=== PATIENT | female | born 1985 | race Caucasian/White ===

== ENCOUNTER 2017-07-14 09:44 | Emergency (ER) | payer OTHER ==
[~2017-07-14] VITALS: Ht 171.5 cm; Wt 70.2 kg
[2017-07-14 09:54] VITALS: TEMP 36.9; Ht 171.5 cm; Wt 70.2 kg
[2017-07-14] MEDS ORDERED: SODIUM CHLORIDE 0.9% 1000ML 1,000 ML IV STA (10:16)
[2017-07-14 10:38] LABS: BASO % 0.2 %; BASO ABS # 0.02 K/uL (0-0.2); EOS % 0.7 %; EOS ABS # 0.07 K/uL (0-0.5); HEMATOCRIT 37.7 % (37-47); HEMOGLOBIN 12.5 g/dL (12.0-16.0); IG# 0.04 K/uL (0.00-0.02); LYMPH % 6.2 %; LYMPH ABS # 0.61 K/uL (1.2-3.4); MEAN CELL VOLUME 83.8 fL (80-100); MEAN CORPUSCULAR HEMOGLOBIN 27.8 pg (25-34); MEAN CORPUSCULAR HGB CONC 33.2 g/dl (32-36); MEAN PLATELET VOLUME 10.5 fL (7.4-10.4); MONO % 8.2 %; NEUT % 84.3 %; NEUT ABS # 8.25 K/uL (1.4-6.5); PLATELET COUNT 212 K/uL (130-400); RED CELL DISTRIBUTION WIDTH CV 14.3 % (11.5-14.5); RED CELL DISTRIBUTION WIDTH SD 44.1 fL (36.4-46.3); WHITE BLOOD COUNT 9.79 K/uL (4.8-10.8)
--- NOTE | 2017-07-14 10:39 | EMERGENCY ROOM VISIT NOTE ---
History Report prepared by Apolinar: Sarwat Reece Under the Supervision of: Dr. Tameka Bay M.D. First contact with patient: 10:05 Chief Complaint: SYNCOPE (NEAR SYNCOPE) Stated Complaint: PAIN BEHIND BELLY BUTTON, VOMITING, PASSING OUT Nursing Triage Summary: Patient states "For the past couple years, I've been having lots of pain with my period. My period started yesterday and the pain started. Today, the pain has been worse. I started having chills, nausea and feeling like I was going to pass out." History of Present Illness The patient is a 32 year old female who presents to the Emergency Room with complaints of persistent periumbilical abdominal pain that began yesterday. The patient states that she started her period yesterday. "Heavy bleeding" and significant abdominal cramping are common for her with her menstrual cycles. However, the pain she woke up with this morning was different in the quality and intensity of the symptoms. She described her pain as a "super intense" "tearing and pulling" sensation around her belly button. This pain is worsened with movement. Today she also began to experience waves of nausea and chills. She also described a "hot and tingling" sensation over her head and face. She believed that these were pre-syncopal symptoms, but never actually lost consciousness. The patient does have a history of ovarian cysts. Source of History: patient Onset: Yesterday Symptom Intensity: severe (Super severe) Quality: other ("tearing/pulling") Timing: other (Persistent) Modifying Factors (Worsening): movement Associated Symptoms: + chills, + nausea, + numbness ("hot and tingling" over her head and face) Review of Systems See HPI for pertinent positives & negatives. A total of 10 systems reviewed and were otherwise negative. Past Medical & Surgical Hx of ovarian cyst Family History Cancer Hypertension Social History Smoking Status: Never Smoker Drug Use: none Marital Status: Housing Status: lives with family Current/Historical Medications No Active Prescriptions or Reported Meds Allergies Coded Allergies: No Known Allergies (Unverified , 07/14/17) Physical Exam Vital Signs Date Time Temp Pulse Resp B/P (MAP) Pulse Ox O2 Delivery O2 Flow Rate FiO2 07/14/17 13:45 100 18 117/62 98 07/14/17 13:04 91 16 119/65 98 Room Air 07/14/17 11:38 97 20 127/93 97 Room Air 07/14/17 10:53 94 07/14/17 10:48 96 16 124/75 100 Room Air 102 125/75 107 121/78 07/14/17 10:14 84 18 128/90 100 Room Air 07/14/17 09:54 36.9 97 18 117/65 100 Room Air Physical Exam Vital signs reviewed. General: Well-appearing young female, in no significant distress. HEENT: No scleral icterus, PERRLA, neck supple. Atraumatic. Cardiovascular: Regular rate and rhythm, no extra sounds. Pulmonary: Clear to auscultation bilaterally, normal work of breathing. Abdomen: Soft, nontender, nondistended, positive bowel sounds. Musculoskeletal: Atraumatic, no peripheral edema. Neurologic: Patient awake alert and oriented x 3 Skin: Warm, dry, no rash Medical Decision & Procedures ER Provider Diagnostic Interpretation: Radiology results as stated below per my review and radiologist interpretation: PELVIC ULTRASOUND, TRANSABDOMINAL AND TRANSVAGINAL HISTORY: menstrual pain, near syncope COMPARISON: None. FINDINGS: Uterus: 7.4 x 5.3 x 3.8 cm. Endometrial stripe: 9 mm in thickness. Right ovary: Heterogeneous ovarian parenchyma with the ovary measuring 5.4 x 3.3 x 4.6 cm. There are few small follicle/cysts. Normal color flow within the ovary. Left ovary: Heterogeneous ovarian parenchyma with the ovary measuring 4.2 x 2.8 x 2.4 cm. There are few small follicle/cysts. Normal color flow within the ovary. Miscellaneous:Trace pelvic free fluid. IMPRESSION: 1. Normal uterus. 2. Trace pelvic free fluid. 3. Heterogeneous parenchyma of the bilateral ovaries which contain a few small follicles/cysts. Given the symmetry this is likely within the range of normal limits. Electronically signed by: Taras Sheridan M.D. 07/14/2017 1:03 PM Dictated Date/Time: 07/14/2017 12:58 PM Laboratory Results 07/14/17 10:29 Red Blood Count 4.50, Mean Corpuscular Volume 83.8, Mean Corpuscular Hemoglobin 27.8, Mean Corpuscular Hemoglobin Concent 33.2, Mean Platelet Volume 10.5, Neutrophils (%) (Auto) 84.3, Lymphocytes (%) (Auto) 6.2, Monocytes (%) (Auto) 8.2, Eosinophils (%) (Auto) 0.7, Basophils (%) (Auto) 0.2, Neutrophils # (Auto) 8.25, Lymphocytes # (Auto) 0.61, Monocytes # (Auto) 0.80, Eosinophils # (Auto) 0.07, Basophils # (Auto) 0.02 07/14/17 10:29 Test 07/14/17 10:29 07/14/17 11:30 White Blood Count 9.79 K/uL (4.8-10.8) Red Blood Count 4.50 M/uL (4.2-5.4) Hemoglobin 12.5 g/dL (12.0-16.0) Hematocrit 37.7 % (37-47) Mean Corpuscular Volume 83.8 fL (80-100) Mean Corpuscular Hemoglobin 27.8 pg (25-34) Mean Corpuscular Hemoglobin Concent 33.2 g/dl (32-36) Platelet Count 212 K/uL (130-400) Mean Platelet Volume 10.5 fL (7.4-10.4) Neutrophils (%) (Auto) 84.3 % Lymphocytes (%) (Auto) 6.2 % Monocytes (%) (Auto) 8.2 % Eosinophils (%) (Auto) 0.7 % Basophils (%) (Auto) 0.2 % Neutrophils # (Auto) 8.25 K/uL (1.4-6.5) Lymphocytes # (Auto) 0.61 K/uL (1.2-3.4) Monocytes # (Auto) 0.80 K/uL (0.11-0.59) Eosinophils # (Auto) 0.07 K/uL (0-0.5) Basophils # (Auto) 0.02 K/uL (0-0.2) RDW Standard Deviation 44.1 fL (36.4-46.3) RDW Coefficient of Variation 14.3 % (11.5-14.5) Immature Granulocyte % (Auto) 0.4 % Immature Granulocyte # (Auto) 0.04 K/uL (0.00-0.02) Anion Gap 4.0 mmol/L (3-11) Est Creatinine Clear Calc Drug Dose 97.0 ml/min Estimated GFR () 109.8 Estimated GFR (Non- 94.8 BUN/Creatinine Ratio 15.6 (10-20) Calcium Level 8.5 mg/dl (8.5-10.1) Total Bilirubin 0.7 mg/dl (0.2-1) Direct Bilirubin 0.2 mg/dl (0-0.2) Aspartate Amino Transf (AST/SGOT) 12 U/L (15-37) Alanine Aminotransferase (ALT/SGPT) 18 U/L (12-78) Alkaline Phosphatase 58 U/L (45-117) Total Protein 7.4 gm/dl (6.4-8.2) Albumin 4.1 gm/dl (3.4-5.0) Thyroid Stimulating Hormone (TSH) 1.460 uIu/ml (0.300-4.500) Urine Color RED Urine Appearance SL CLOUDY (CLEAR) Urine pH 8.0 (4.5-7.5) Urine Specific [place] 1.010 (1.000-1.030) Urine Protein NEG (NEG) Urine Glucose (UA) NEG (NEG) Urine Ketones NEG (NEG) Urine Occult Blood 3+ (NEG) Urine Nitrite NEG (NEG) Urine Bilirubin NEG (NEG) Urine Urobilinogen NEG (NEG) Urine Leukocyte Esterase TRACE (NEG) Urine RBC >30 /hpf (0-4) Urine WBC >30 /hpf (0-5) Urine Epithelial Cells 0-5 /lpf (0-5) Urine Bacteria 1+ (NEG) Urine Test NEG (NEG) Laboratory results per my review. Medications Administered Medications (Trade) Dose Ordered Sig/Sarita Route Start Time Stop Time Status Last Admin Dose Admin Sodium Chloride 1,000 ml @ 999 mls/hr Q1H1M STAT IV 07/14/17 10:16 07/14/17 11:16 DC 07/14/17 10:16 999 MLS/HR ECG Per My Interpretation Indication: syncope (near) Rate (beats per minute): 94 Rhythm: normal sinus Findings: other (No PVCs, no JAYNA/STD) ED Course 1014: Past medical records reviewed. The patient was evaluated in room B9. A complete history and physical examination was performed. 1016: Ordered Sodium Chloride 1000 mL @ 999 mL/hr IV. 1349: Upon reevaluation, the patient appeared to have improvement of her symptoms. I discussed findings with her. She verbalized agreement of the treatment plan. The patient was discharged home. Medical Decision Differential diagnosis: Etiologies such as appendicitis, diverticulitis, PUD, biliary pathology, UTI, pancreatitis, obstruction, mesenteric ischemia, aortic pathology, infections, inflammatory bowel disease, renal colic, as well as others were entertained. This patient was evaluated and appeared to be in no significant distress. IV access was obtained and laboratory work was drawn. Patient was hydrated with normal saline solution. Laboratory work is fairly unrevealing. EKG reveals no evidence of acute ischemia/dysrhythmia. Ultrasound of the pelvis was performed and is fairly normal, there is a small amount of free fluid. The patient's severe pain may have been related to she was advised to follow-up with her OB/ COMPENSATION ANALYST as soon as possible. She is feeling much improved after the IV hydration and did not require any pain medication in the emergency department. Patient was discharged in care of her and will return to the ED for worsening of symptoms or any medical concerns. Medication Reconcilliation Current Medication List: was personally reviewed by me Blood Pressure Screening Patient's blood pressure: Normal blood pressure Impression Primary Impression: Dysmenorrhea Additional Impression: Near syncope Scribe Attestation The scribe's documentation has been prepared under my direction and personally reviewed by me in its entirety. I confirm that the note above accurately reflects all work, treatment, procedures, and medical decision making performed by me. Departure Information Dispostion Home / Self-Care Prescriptions No Active Prescriptions or Reported Meds Forms HOME CARE DOCUMENTATION FORM, IMPORTANT VISIT INFORMATION Patient Instructions My [facility] [address] Additional Instructions Diagnosis: Dysmenorrhea, near-syncope Ibuprofen 600 mg every 6 hours as needed for pain with food. Drink plenty of clear fluids. Contact SENIOR PHYSICIAN for follow-up as soon as possible. Follow-up with your primary care physician if the symptoms recur. Return to the emergency department for worsening of symptoms or any medical concerns. Problem Qualifiers
[2017-07-14 11:05] LABS: ALBUMIN 4.1 gm/dl (3.4-5.0); CALCIUM 8.5 mg/dl (8.5-10.1); CREATININE 0.81 mg/dl (0.60-1.20); POTASSIUM 3.5 mmol/L (3.5-5.1); TOTAL PROTEIN 7.4 gm/dl (6.4-8.2)
--- NOTE | 2017-07-14 13:04 | DIAGNOSTIC IMAGING REPORT ---
PELVIC ULTRASOUND, TRANSABDOMINAL AND TRANSVAGINAL HISTORY: menstrual pain, near syncope COMPARISON: None. FINDINGS: Uterus: 7.4 x 5.3 x 3.8 cm. Endometrial stripe: 9 mm in thickness. Right ovary: Heterogeneous ovarian parenchyma with the ovary measuring 5.4 x 3.3 x 4.6 cm. There are few small follicle/cysts. Normal color flow within the ovary. Left ovary: Heterogeneous ovarian parenchyma with the ovary measuring 4.2 x 2.8 x 2.4 cm. There are few small follicle/cysts. Normal color flow within the ovary. Miscellaneous:Trace pelvic free fluid. IMPRESSION: 1. Normal uterus. 2. Trace pelvic free fluid. 3. Heterogeneous parenchyma of the bilateral ovaries which contain a few small follicles/cysts. Given the symmetry this is likely within the range of normal limits. Electronically signed by: Taras Sheridan M.D. 07/14/2017 1:03 PM Dictated Date/Time: 07/14/2017 12:58 PM
[2017-07-14 13:45] VITALS: BP 117/62; PULSE 100; O2SAT 98
== END 2017-07-14 14:00 | disposition home or self-care (01) ==
LOC: C.EDB 09:47
DX: N94.6 Dysmenorrhea, unspecified (principal); R55 Syncope and collapse; Z87.42 Personal history of other diseases of the female genital tract

== ENCOUNTER → 2017-10-11 | Outpatient (CLI) | payer OTHER ==
[~2017-10-11] MED LIST: GADAVIST IV PRN; PRLSR20 PO; RANI150T3 PO; RIBO50TA5; SUMA50TA15 PO
--- NOTE | 2017-10-11 14:10 | DIAGNOSTIC IMAGING REPORT ---
BRAIN COMBO CLINICAL HISTORY: 32 years-old Female presenting with CHRONIC MIGRAINE, history of migraines for 3 years, dizziness and nausea with migraines. TECHNIQUE: Multisequence, multiplanar MR imaging of the brain was performed before and after the administration of intravenous contrast. IV contrast: 6.5 mL of Gadavist. COMPARISON: None. FINDINGS: Localizer images: Unremarkable. Ventricles and sulci normal in size. Several foci (7) of T2/FLAIR hyperintensity in the subcortical white matter, which are unexpected for chronic small vessel ischemic change given the patient's age. These do not enhance or demonstrate restricted diffusion. No mass effect or midline shift. No restricted diffusion to suggest acute ischemia. No hemorrhage. No extra-axial fluid collection. T2 skull base flow voids preserved. No abnormal parenchymal enhancement. Bone marrow signal intensity within the calvarium within normal limits. IMPRESSION: 1. Multiple foci of abnormal white matter signal intensity, which could be consistent with the history of chronic migraines. No acute intracranial pathology. No abnormal enhancement. Electronically signed by: Cristian Mcmullen M.D. 10/11/2017 2:09 PM Dictated Date/Time: 10/11/2017 2:01 PM
== END | disposition home or self-care (01) ==
LOC: C.MRIBC 13:25
PROVIDERS: ATTEND Physician Assistant Medical
DX: G43.909 Migraine, unspecified, not intractable, without status migrainosus (principal)